=== PATIENT | female | born 2005 | race Hispanic/Latino ===

== ENCOUNTER 2025-04-24 09:14 | Emergency (ER) | payer OTHER ==
[~2025-04-24] VITALS: Ht 167.6 cm; Wt 84.4 kg
[2025-04-24] MEDS: 0.9%NACL 1000ML 1,000 ML IV ONE (09:54)
[2025-04-24] MEDS: ondanSETRON 4MG INJ IVP ONE (09:54)
[2025-04-24 10:07] LABS: BASOPHILS # (AUTO) 0.03 K/uL (0.00-0.20); BASOPHILS % (AUTO) 0.2 % (0.0-5.0); EOSINOPHILS # (AUTO) 0.01 K/uL (0.00-0.70); EOSINOPHILS % (AUTO) 0.1 % (0.0-8.0); HEMATOCRIT 35.7 % (36-48); IMMATURE GRANULOCYTE ABSOLUTE 0.09 K/uL (0-1); LYMPHOCYTES # (AUTO) 1.6 K/uL (1.0-4.8); LYMPHOCYTES % (AUTO) 9.5 % (21.0-51.0); MEAN CORPUSCULAR HEMOGLOBIN 29.2 pg (27.0-33.0); MEAN CORPUSCULAR HGB CONC 34.2 g/dL (32.0-36.0); MEAN CORPUSCULAR VOLUME 85.4 fL (80-100); MONOCYTES # (AUTO) 1.6 K/uL (0.1-1.0); MONOCYTES % (AUTO) 9.6 % (3.0-13.0); NEUTROPHILS # (AUTO) 13.1 K/uL (1.8-7.7); NEUTROPHILS % (AUTO) 80.1 % (40.0-77.0); PLATELET COUNT (AUTO) 317 K/uL (130-400); RED BLOOD CELL COUNT(AUTO) 4.18 MIL/uL (4.00-5.50); RED CELL DISTRIBUTION WIDTH 12.7 % (11.0-15.5); WHITE BLOOD COUNT (AUTO) 16.4 K/uL (4.8-10.8)
[2025-04-24 10:23] LABS: ALBUMIN 4.1 g/dL (3.5-5.0); CREATININE 0.7 mg/dL (0.5-1.0); POTASSIUM 3.1 mmol/L (3.5-5.1)
[2025-04-24 10:30] LABS: BILIRUBIN,DIRECT 0.2 mg/dL (0.0-0.3); BILIRUBIN,TOTAL 0.9 mg/dL (0.2-1.0); TOTAL PROTEIN, SERUM 8.2 g/dL (6.0-8.3)
[2025-04-24] MEDS: HALOPERIDOL INJ 5 MG/ML VIAL IV ONE (11:00)
[2025-04-24 12:34] LABS: APPEARANCE,URINE CLEAR (CLEAR); BILIRUBIN,URINE NEGATIVE (NEGATIVE); COLOR,URINE YELLOW (YELLOW); GLUCOSE, URINE (UA) 30 mg/dL (NEGATIVE); KETONES,URINE 150 mg/dL (NEGATIVE); LEUKOCYTE ESTERASE ,URINE NEGATIVE Leu/uL (NEGATIVE); NITRATE,URINE NEGATIVE (NEGATIVE); OCCULT BLOOD,URINE MODERATE (NEGATIVE); PROTEIN,URINE 300 mg/dL (NEGATIVE)
[2025-04-24 12:35] LABS: ADD UA MICROSCOPIC YES; AMPHET/METH SCREEN,URINE NEGATIVE (NEGATIVE); BARBITURATE SCREEN, URINE NEGATIVE (NEGATIVE); BENZODIAZEPINES SCREEN,URINE NEGATIVE (NEGATIVE); CANNABINOID SCREEN,URINE POSITIVE (NEGATIVE); COCAINE SCREEN,URINE NEGATIVE (NEGATIVE); OPIATE SCREEN,URINE NEGATIVE (NEGATIVE); PHENCYCLIDINE SCREEN,URINE NEGATIVE (NEGATIVE)
[2025-04-24 12:37] LABS: MUCUS,URINE MANY LPF (None Seen); NON-SQUAMOUS EPITHELIAL CELL 1 /HPF (0-2); SQUAMOUS EPITHELIAL CELL,UR RARE /HPF (0-2)
--- NOTE | 2025-04-24 13:20 | HMCIMG ---
Exam Type: ABD COMP DECUB/ERECT VWS Clinical Information: pain Comparison: None Findings: Abdomen demonstrates no evidence of pathologic calcification or soft tissue mass. The liver silhouette is enlarged consistent with hepatomegaly. There are no radiopacities to suggest calculous disease. The intestinal gas pattern is within normal limits without evidence of dilatation to suggest obstruction or adynamic ileus. The bony structures are unremarkable. IMPRESSION: Normal bowel gas pattern. Hepatomegaly.
[2025-04-24 13:30] VITALS: BP 121/95; PULSE 65; RESP 20; TEMP 98.6; O2SAT 99
[2025-04-24] MEDS ORDERED: ONDA-243 PO (13:32)
--- NOTE | 2025-04-24 13:33 | ERN ---
ED Note History of Present Illness Stated Complaint: ABDOMINAL PAIN Chief Complaint: Nausea,Vomiting,Diarrhea Time Seen by MD: 09:35 Dictation: 20-year-old female presenting to the emergency department with epigastric pain nausea vomiting, patient reports using marijuana with similar episodes in the past .No fever no chest pain. The patient from out of town. No local primary care doctor. Allergies: Coded Allergies: No Known Drug Allergies (Unverified Allergy, Unknown, 04/24/25) Home Meds Active Scripts Ondansetron (Ondansetron Odt) 4 Mg Tab.rapdis, 1 TAB PO Q6HPRN PRN for nausea/vomiting for 4 Days, #16 TAB 0 Refills Prov:RASHEL SALVADOR MD 04/24/25 Past Medical History Past Medical History: Asthma Surgical History: None Review of System Dictation Constitutional: Negative for fever,chills, and weight loss Eyes: Negative for injury, pain,redness, and discharge ENT: Negative for injury,pain or swelling Cardiovascular: Negative for chest pain, palpitations, and edema Respiratory: Negative for shortness of breath, cough, and wheezing, Abdomen/GI: Per HPI Back: Negative for injury and pain : Negative for injury, bleeding and discharge MS/Extremity: Negative for injury and deformity Skin: Negative for rash, and discoloration Neuro: Negative for headache, weakness, numbness, tingling, and seizure Initial Vital Sign VS Vital Signs Date Time Temp Pulse Resp B/P (MAP) Pulse Ox O2 Delivery O2 Flow Rate FiO2 04/24/25 09:15 98.6 61 20 128/101 99 Room Air 0 04/24/25 13:30 21 Physical Exam Dictation General: awake, alert, appears uncomfortable Head/Face: Normocephalic, atraumatic Eyes: PERRL, EOMI, vision at baseline ENT: oral cavity clear, TMs clear, no signs of infection Neck: Trachea midline, supple, no nuchal rigidity Cardiovascular: RRR, normal S1/S2, No MRGs, no JVD Respiratory: CTAB, no respiratory distress, No rales or wheezes Abdomen: Soft, non-tender, non-distended, normal bowel sounds, no guarding or rebound. Skin: Warm, dry, normal turgor, no rash MS/Extremity: Pulses equal, no cyanosis, neurovascular intact, FROM Neuro: COAx4, GCS 15, strength 5/5, CN 2-12 intact, normal cerebellar exam, normal gait, Psych: Normal behavior, mood, and affect normal Results (Laboratory/Radiology) Laboratory/Radiology Laboratory Tests Test 04/24/25 09:42 04/24/25 12:20 White Blood Count 16.4 K/uL (4.8-10.8) H Red Blood Count 4.18 MIL/uL (4.00-5.50) Hemoglobin 12.2 g/dL (12.0-16.0) Hematocrit 35.7 % (36-48) L Mean Corpuscular Volume 85.4 fL (80-100) Mean Corpuscular Hemoglobin 29.2 pg (27.0-33.0) Mean Corpuscular Hemoglobin Concent 34.2 g/dL (32.0-36.0) Red Cell Distribution Width 12.7 % (11.0-15.5) Platelet Count 317 K/uL (130-400) Mean Platelet Volume 11.3 fL (7.5-10.5) H Immature Granulocyte % (Auto) 0.5 % (0-1) Neutrophils (%) (Auto) 80.1 % (40.0-77.0) H Lymphocytes (%) (Auto) 9.5 % (21.0-51.0) L Monocytes (%) (Auto) 9.6 % (3.0-13.0) Eosinophils (%) (Auto) 0.1 % (0.0-8.0) Basophils (%) (Auto) 0.2 % (0.0-5.0) Neutrophils # (Auto) 13.1 K/uL (1.8-7.7) H Lymphocytes # (Auto) 1.6 K/uL (1.0-4.8) Monocytes # (Auto) 1.6 K/uL (0.1-1.0) H Eosinophils # (Auto) 0.01 K/uL (0.00-0.70) Basophils # (Auto) 0.03 K/uL (0.00-0.20) Absolute Immature Granulocyte (auto 0.09 K/uL (0-1) Nucleated Red Blood Cells 0.0 % (0.0-0.19) White Cell Morphology Comment See comments Sodium Level 137 mmol/L (136-145) Potassium Level 3.1 mmol/L (3.5-5.1) L Chloride Level 101 mmol/L (101-111) Carbon Dioxide Level 22 mmol/L (21-32) Blood Urea Nitrogen 10 mg/dL (7-18) Creatinine 0.7 mg/dL (0.5-1.0) Glomerular Filtration Rate Calc 126 mL/min (>90) Random Glucose 104 mg/dL (70-105) Total Calcium 9.8 mg/dL (8.5-10.1) Total Bilirubin 0.9 mg/dL (0.2-1.0) Direct Bilirubin 0.2 mg/dL (0.0-0.3) Aspartate Amino Transf (AST/SGOT) 11 U/L (10-37) Alanine Aminotransferase (ALT/SGPT) 19 U/L (12-78) Alkaline Phosphatase 71 U/L (50-136) Total Protein 8.2 g/dL (6.0-8.3) Albumin 4.1 g/dL (3.5-5.0) Lipase 16 U/L (16-77) Urine Color YELLOW (YELLOW) Urine Appearance CLEAR (CLEAR) Urine pH 6.0 (5.0-8.0) Urine Specific [place] 1.034 (1.001-1.031) Urine Protein 300 mg/dL (NEGATIVE) H Urine Glucose (UA) 30 mg/dL (NEGATIVE) H Urine Ketones 150 mg/dL (NEGATIVE) H Urine Occult Blood MODERATE (NEGATIVE) H Urine Nitrate NEGATIVE (NEGATIVE) Urine Bilirubin NEGATIVE mg/dL (NEGATIVE) Urine Urobilinogen 2.0 mg/dL (0.2-1.0) H Urine Leukocyte Esterase NEGATIVE Jany/uL Urine RBC 6-10 /HPF (0-1) H Urine WBC 6-10 /HPF (0-1) H Urine Squamous Epithelial Cells RARE /HPF (0-2) Urine Non-Squamous Epithelial Cells 1 /HPF (0-2) Urine Bacteria None /HPF (None Seen) Urine Hyaline Casts 2-5 /LPF (0-1 /LPF) H Urine HCG, Qualitative NEGATIVE (NEGATIVE) Urine Opiates Screen NEGATIVE (NEGATIVE) Urine Barbiturates Screen NEGATIVE (NEGATIVE) Urine Phencyclidine Screen NEGATIVE (NEGATIVE) Urine Amphetamines Screen NEGATIVE (NEGATIVE) Urine Benzodiazepines Screen NEGATIVE (NEGATIVE) Urine Cocaine Screen NEGATIVE (NEGATIVE) Urine Marijuana (THC) Screen POSITIVE (NEGATIVE) H Labs Reviewed?: Yes ED Course ED Course Orders Procedure Category Date Status Time Vital Signs Per CPOE 04/24/25 Transmitted Routine 09:15 Saline Lock Iv CPOE 04/24/25 Transmitted 09:15 Cbc With Differential LAB 04/24/25 Complete 09:15 Lipase LAB 04/24/25 Complete 09:15 Urinalysis Profile LAB 04/24/25 Complete 09:15 Basic Metabolic Panel LAB 04/24/25 Complete 09:15 Ondansetron 4mg Inj PHA 04/24/25 Complete (Zofran 4mg Inj) 10:00 0.9%Nacl 1000ml (Ns PHA 04/24/25 Complete 1000ml) 10:00 ,Urine Test LAB 04/24/25 Complete 09:37 Hepatic Function Panel LAB 04/24/25 Complete 09:15 Drug Screen Urine LAB 04/24/25 Complete 10:49 Haloperidol Inj PHA 04/24/25 Complete (Haldol Inj) 11:00 Culture Urine JORGE A 04/24/25 In Process 12:48 Abd Comp Decub/Erect RAD 04/24/25 Resulted VWS 12:51 Current Medications Medications (Trade) Dose Ordered Sig/Reynaldo Route PRN Reason Start Time Stop Time Status Last Admin Dose Admin Haloperidol Lactate (Haldol Inj) 2 mg ONCE ONCE IV 04/24/25 11:00 04/24/25 11:01 DC 04/24/25 11:00 Ondansetron HCl (zoFRAN 4MG INJ) 4 mg ONCE ONCE IVP 04/24/25 10:00 04/24/25 10:01 DC 04/24/25 09:54 Sodium Chloride 1,000 ml @ 0 mls/hr ONCE ONCE IV 04/24/25 10:00 04/24/25 10:01 DC 04/24/25 09:54 Vital Signs Date Time Temp Pulse Resp B/P (MAP) Pulse Ox O2 Delivery O2 Flow Rate FiO2 04/24/25 13:30 98.6 65 20 121/95 99 Room Air* 0 21 04/24/25 09:15 98.6 61 20 128/101 99 Room Air 0 Medical Decision Making MDM MDM: Differential diagnosis: Rationale: Tests considered and ordered secondary to shared decision making include: Previous outside records reviewed: Old ER visits. Risk of complication and/or morbidity or mortality of patient management: None Medications-Per medication reconciliation Need for hospitalization: Patient does not meet criteria for hospitalization. Need for emergency major/minor surgery: No There are no social concerns with this patient. Prescription drug management Prescriptions will include symptomatic care Patient's prior external medical records from other ER visits were reviewed by me as indicated. Prior testing and results from previous visits were reviewed. Prior tests were taken into account with medical decision making and resource utilization, independent historian/historians were used to obtain complete medical history. I independently interpreted the test that were performed, results were reviewed by me and considered findings on radiology if ordered. Medical management and examination interpretation discussions were had by me with other qualified healthcare professionals as indicated for the patient's care. 20-year-old female with acute abdominal pain and vomiting, stable exam negative workup repeat abdominal exam is negative flat and upright x-ray negative no CT scan indicated symptoms now resolved prescriptions given. DX & DISP Disposition: Discharge Departure Impression: Primary Impression: Acute vomiting Condition: Stable Scripts Ondansetron (Ondansetron Odt) 4 Mg Tab.rapdis 1 TAB PO Q6HPRN PRN for nausea/vomiting for 4 Days, #16 TAB 0 Refills Prov: RASHEL SALVADOR MD 04/24/25 Referrals: SELF,REFERRAL (PCP) RASHEL SALVADOR MD Apr 24, 2025 13:32
== END 2025-04-24 13:40 | disposition home or self-care (01) ==
LOC: EDH 09:14
DX: R11.2 Nausea with vomiting, unspecified (principal); J45.909 Unspecified asthma, uncomplicated
CPT/HCPCS: 99284; 96374; 96361; 96375; 80076; 80048; 80305; 83690; 85025; 87086; 81025; 36415; 74021; 81001; J7030; J1630; J2405